=== PATIENT | female | born 1970 | race Caucasian/White ===

== ENCOUNTER 2022-05-05 08:29 | Emergency (ER) | payer OTHER ==
[2022-05-05 09:08] LABS: HEMOGLOBIN 13.2 gm/dl (12.3-15.3); RED BLOOD COUNT 4.73 M/UL (4.00-5.10)
[2022-05-05 10:20] LABS: BUN/CREATININE RATIO 14 (0-10)
[2022-05-05] MEDS ORDERED: ANTIVERT25 M1 PO (12:19)
[2022-05-05] MEDS ORDERED: ASPIRIN CHEWABL81 MG PO (12:19)
[2022-05-07] MEDS ORDERED: LEVOTHYROXINE150 MCG PO (13:58)
[2022-05-07] MEDS ORDERED: VRAYLAR1.5 MG PO (13:59)
[2022-05-07] MEDS ORDERED: OXYBUTYNIN CHLOR5 M1 PO (13:59)
[2022-05-07] MEDS ORDERED: BUSPIRONE HCL15 MG PO (13:59)
[2022-05-07] MEDS ORDERED: HYDROXYZINE HCL50 MG PO (14:00)
[2022-05-07] MEDS ORDERED: ASPIRIN EC81 MG PO (14:01)
== END 2022-05-05 12:58 | disposition home or self-care (01) ==
LOC: ER1 08:29
PROVIDERS: Emergency Medicine
DX: R42 Dizziness and giddiness (principal); F17.200 Nicotine dependence, unspecified, uncomplicated; Z20.822 Contact with and (suspected) exposure to COVID-19
CPT/HCPCS: 70450; 71045; 80053; 82550; 82553; 84484; 85025; 85610; 85730; 99284; U0002